=== PATIENT | male | born 1955 | race Two or more races ===

== ENCOUNTER 2020-04-06 07:06 | Emergency (ER) | payer MEDICARE, OTHER ==
[~2020-04-06] VITALS: Ht 165.1 cm; Wt 48.2 kg
[2020-04-06 08:57] VITALS: BP 155/90
== END 2020-04-06 08:58 | disposition home or self-care (01) ==
LOC: EMS 07:06
DX: Z03.818 Encounter for observation for suspected exposure to other biological agents ruled out (principal); J45.909 Unspecified asthma, uncomplicated; I10 Essential (primary) hypertension
CPT/HCPCS: 99283; U0003